=== PATIENT | female | born 1960 | race Caucasian/White ===

== ENCOUNTER 2020-09-15 16:08 | Emergency (ER) | payer MEDICAID ==
[~2020-09-15] VITALS: Ht 162.6 cm; Wt 111.1 kg
[2020-09-15 16:42] VITALS: Ht 162.6 cm; Wt 111.1 kg
[2020-09-15 17:57] LABS: CALCIUM 8.8 mg/dL (8.5-10.1); CARBON DIOXIDE 25.6 mmol/L (21-32); CREATININE SERUM 1.5 mg/dL (0.6-1.0); POTASSIUM SERUM 4.3 mmol/L (3.5-5.1)
[2020-09-15 17:58] LABS: BASOPHIL % 0.7 % (0-2); PLATELET COUNT 238 x10^3mcL (130-400)
[2020-09-15 18:02] LABS: ALBUMIN 3.8 g/dL (3.4-5.0); BILIRUBIN TOTAL 0.4 mg/dL (0.20-1.00); TOTAL PROTEIN, SERUM 7.5 g/dL (6.4-8.2)
[2020-09-15 19:17] VITALS: BP 136/86
== END 2020-09-15 19:15 | disposition home or self-care (01) ==
LOC: ED 16:08
PROVIDERS: Emergency Medicine
DX: F07.81 Postconcussional syndrome (principal); E11.9 Type 2 diabetes mellitus without complications; I10 Essential (primary) hypertension; E78.00 Pure hypercholesterolemia, unspecified; M10.9 Gout, unspecified; Z90.710 Acquired absence of both cervix and uterus; Z88.6 Allergy status to analgesic agent
CPT/HCPCS: 82962; J1885; J2765

== ENCOUNTER 2021-02-03 15:29 | Emergency (ER) | payer MEDICAID ==
[~2021-02-03] VITALS: Ht 170.2 cm; Wt 100.7 kg
[2021-02-03 15:37] VITALS: Ht 170.2 cm; Wt 100.7 kg
[2021-02-03] MEDS ORDERED: MOT600 PO (17:04)
[2021-02-03 17:15] VITALS: BP 126/68
== END 2021-02-03 17:15 | disposition home or self-care (01) ==
LOC: ED 15:29
DX: F07.81 Postconcussional syndrome (principal); R04.0 Epistaxis; I10 Essential (primary) hypertension; E11.9 Type 2 diabetes mellitus without complications; M10.9 Gout, unspecified; E78.00 Pure hypercholesterolemia, unspecified; Z90.49 Acquired absence of other specified parts of digestive tract; Z90.710 Acquired absence of both cervix and uterus; Z88.8 Allergy status to other drugs, medicaments and biological substances; X58.XXXA Exposure to other specified factors, initial encounter; Y93.89 Activity, other specified; Y92.89 Other specified places as the place of occurrence of the external cause; Y99.8 Other external cause status